=== PATIENT | female | born 1945 | race Caucasian/White ===

== ENCOUNTER 2019-01-22 06:45 | Day surgery (SDC) | payer MEDICARE, OTHER ==
--- NOTE | 2019-01-21 18:42 | NUR ---
CALLED PT, LEFT VOICEMAIL MESSAGE TO CALL BACK TO [phone] IF ABLE BEFORE 8PM
[~2019-01-22] VITALS: Ht 162.6 cm; Wt 103.0 kg
[2019-01-22] VITALS (11 sets, daily range): BP systolic 157–201; BP diastolic 64–82; PULSE 60–76; TEMP 98.4
[~2019-01-22 06:45] MED LIST: ADIPEX-P37.5 MG PO; APPEAREX2.5 MG PO; BENADRYL50 MG PO; ESTRACE 1MG1 MG/TAB PO; LIPITOR20 MG PO; MOBIC15 MG PO; PRILOSEC 20MG20 MG PO; RT ADVAIR HFA 1112 G IH; TEGRETOL 2200 MG/TA1 PO; VITAMIN D 50,1.25 MG PO
[2019-01-22 07:47] LABS: HEMOGLOBIN 11.6 g/dl (12.5-16.0); MEAN CELL VOLUME 90 fl (80.0-100.0); MEAN CORPUSCULAR HEMOGLOBIN 30 pg (27.0-31.0); MEAN CORPUSCULAR HGB CONC 33 g/dl (33.0-37.0); MEAN PLATELET VOLUME 9.4 fl (7.4-10.4); PLATELET COUNT 199 K/mm3 (130-400); RED BLOOD COUNT 3.86 M/mm3 (4.10-5.30); REDCELL DISTRIBUTION WIDTH-CV 12.6 % (11.5-14.5)
[2019-01-22 07:49] LABS: HEMATOCRIT 34.8 % (37.0-47.0)
[2019-01-22 07:51] LABS: PROTHROMBIN TIME 11.5 SECONDS (9.7-12.8)
[2019-01-22 07:52] LABS: CALCIUM 8.4 mg/dL (8.4-10.2); CREATININE, serum 0.54 (0.52-1.25)
[2019-01-22] MEDS ORDERED: ZOLOFT 50MG50 MG PO (08:12)
[2019-01-22] MEDS ORDERED: NEURONTIN300 MG/CAP PO (08:13)
[2019-01-22] MEDS ORDERED: COZAAR100 MG PO (08:15)
[2019-01-22] MEDS ORDERED: DEXILANT60 MG PO (08:18)
[2019-01-22] MEDS ORDERED: ZANTAC 150MG T150 MG PO (08:19)
[2019-01-22] MEDS ORDERED: 00186-0370-20 IH (08:20)
[2019-01-22] MEDS ORDERED: PROAIR HFA0.09 MG/AC IH (08:21)
[2019-01-22] MEDS ORDERED: SPIRIVA RESPIMAT4 GM IH (08:22)
[2019-01-22] MEDS ORDERED: NASAREL0.025 MG/1 NAS (08:23)
[2019-01-22] MEDS ORDERED: ZYRTEC 10MG10 MG PO (08:23)
[2019-01-22] MEDS ORDERED: NORVASC 5MG5 MG/TAB PO (08:24)
[2019-01-22] MEDS ORDERED: SINGULAIR 110 MG/TAB PO (08:24)
[2019-01-22] MEDS ORDERED: MYRBETR25MG PO (08:24)
[2019-01-22] MEDS ORDERED: ASPIRIN E.C. 8181 MG PO (08:25)
[2019-01-22] MEDS ORDERED: NITROSTAT0.4 MG/TAB SL (08:25)
[2019-01-22] MEDS ORDERED: TYLENOL 500MG500 MG PO (08:26)
[2019-01-22] MEDS ORDERED: IMODIUM 2MG CAPS2 MG PO (08:26)
--- NOTE | 2019-01-22 09:09 | NUR ---
SEE MERGE DOCUMENTATION FOR MEDICATION ADMINISTRATION TIMES AND INTRA/POST PROCEDURE SEDATION ASSESSMENTS. PT C/O INCREASED SOA, DIZZINESS, AND SLIGHT CHEST PRESSURE AFTER AMBULATING TO BATHROOM IN EU. SX RESOLVED AFTER RESTING IN BED FOR A FEW MINUTES. DR SALAZAR NOTIFIED OF THIS. PT CONNECTED TO MONITOR FOR TRANSPORT FROM TO [facility].
--- NOTE | 2019-01-22 10:00 | NUR ---
Pt returned to EU 14 per bed s/p heart cath. Pt resting well, friend Ankita at bedside.
--- NOTE | 2019-01-22 10:07 | NUR ---
Pt transferred to 14 from finishing lab technician at this time. VS monitors connected. Pt alert and oriented; conversing with staff. Bedside handoff to TONY Pham. Right radial access site observed. TR band in place with 14 mmHg pressure. No bleeding/brusing noted. SpO2 pleth wave appropriate from right hand fingers. Cap refill <3 sec. Pt denies pain or sensation changes to right wrist or fingers. Education provided regarding wrist restrictions and s/sx to report. All pt questions answered at this time.
--- NOTE | 2019-01-22 13:00 | NUR ---
R radial band removed, site remains soft, C/D/I. Site covered with bandaid and gauze and wrapped with coban. Pt ayde well. Pt has ambulated, voided and ayde PO intake s n/v. PIV removed with catheter intact.
--- NOTE | 2019-01-22 13:25 | NUR ---
Pt discharged per w/c by nurse with friend Ankita.
== END 2019-01-22 14:59 | disposition home or self-care (01) ==
LOC: COL.CAR 06:45
PROVIDERS: Internal Medicine Cardiovascular Disease
DX: I34.8 Other nonrheumatic mitral valve disorders (principal); R94.39 Abnormal result of other cardiovascular function study; J44.9 Chronic obstructive pulmonary disease, unspecified; I10 Essential (primary) hypertension; G47.33 Obstructive sleep apnea (adult) (pediatric); Z88.1 Allergy status to other antibiotic agents; Z88.2 Allergy status to sulfonamides; Z88.8 Allergy status to other drugs, medicaments and biological substances; Z79.52 Long term (current) use of systemic steroids; Z79.01 Long term (current) use of anticoagulants; Z82.49 Family history of ischemic heart disease and other diseases of the circulatory system
CPT/HCPCS: J1644; J2250; J3010

== ENCOUNTER 2020-06-04 07:25 | Day surgery (SDC) | payer MEDICARE, OTHER ==
[~2020-06-04] VITALS: Ht 162.6 cm; Wt 103.0 kg
[2020-06-04] VITALS (16 sets, daily range): BP systolic 135–183; BP diastolic 61–87; PULSE 59–67; TEMP 97
[~2020-06-04 07:25] MED LIST changes: +00186-0370-20 IH; +ASPIRIN E.C. 8181 MG PO; +COZAAR100 MG PO; +DEXILANT60 MG PO; +IMODIUM 2MG CAPS2 MG PO; +MYRBETR25MG PO; +NASAREL0.025 MG/1 NAS; +NEURONTIN300 MG/CAP PO; +NITROSTAT0.4 MG/TAB SL; +NORVASC 5MG5 MG/TAB PO; +PROAIR HFA0.09 MG/AC IH; +SINGULAIR 110 MG/TAB PO; +SPIRIVA RESPIMAT4 GM IH; +TYLENOL 500MG500 MG PO; +ZANTAC 150MG T150 MG PO; +ZOLOFT 50MG50 MG PO; +ZYRTEC 10MG10 MG PO
[2020-06-04 08:38] LABS: HEMOGLOBIN 11.6 g/dl (12.5-16.0); MEAN CELL VOLUME 90 fl (80.0-100.0); MEAN CORPUSCULAR HEMOGLOBIN 30 pg (27.0-31.0); MEAN CORPUSCULAR HGB CONC 33 g/dl (33.0-37.0); MEAN PLATELET VOLUME 9.2 fl (7.4-10.4); PLATELET COUNT 216 K/mm3 (130-400); REDCELL DISTRIBUTION WIDTH-CV 13.1 % (11.5-14.5)
[2020-06-04 08:39] LABS: HEMATOCRIT 35.1 % (37.0-47.0)
[2020-06-04 08:42] LABS: CALCIUM 8.6 mg/dL (8.4-10.2); CREATININE, serum 0.55 (0.52-1.25); INR 1.1 (0.8-3.0); POTASSIUM 3.2 mmol/L (3.4-5.0); PROTHROMBIN TIME 12.5 SECONDS (9.7-12.8)
[2020-06-04 08:44] LABS: PARTIAL THROMBOPLASTIN TIME 33.6 SECONDS (26.0-37.0)
[2020-06-04] MEDS ORDERED: VITAMIND3 5000 PO (08:50)
--- NOTE | 2020-06-04 10:20 | NUR ---
SEE MERGE DOCUMENTATION FOR MEDICATION ADMINISTRATION AND INTRA/POST PROCEDURE SEDATION ASSESSMENTS.
[2020-06-04] MEDS ORDERED: NORVASC 5MG5 MG/TAB PO (11:20)
--- NOTE | 2020-06-04 15:40 | NUR ---
Air was removed from TR band in 2-4 ml increments without bleeing or other issue. Rt radial puncture site dressed with folded 2x2 gauze and bandaid, wrapped with coban. Cap refill to fingers of rt hand remains less than 2 seconds.
--- NOTE | 2020-06-04 17:10 | NUR ---
Dressing to rt groin changed using sterile technique. Folded 4x4 covered with tegaderm dressing applied. Site remains clean, dry and intact, and soft to palpation. Radial puncture site remains soft to palpation, with gauze & bandaid dressing still clean, dry and intact. Pt is able to ambulate to toilet in room with steady gait following 5 hr bedrest period. She has tolerated PO without issue. IV DC'd with catheter intact, bleeding controlled at site. She expressed understanding of DC instructions. She is assisted out with personal belongings to friend's car.
== END 2020-06-04 17:10 | disposition home or self-care (01) ==
LOC: COL.CAR 07:25
PROVIDERS: Internal Medicine Cardiovascular Disease
DX: I25.10 Atherosclerotic heart disease of native coronary artery without angina pectoris (principal); R94.39 Abnormal result of other cardiovascular function study; Z88.1 Allergy status to other antibiotic agents; Z88.2 Allergy status to sulfonamides; Z88.8 Allergy status to other drugs, medicaments and biological substances
CPT/HCPCS: J1644; J2250; J3010; Q9967

== ENCOUNTER → 2021-03-05 | Outpatient (CLI) | payer MEDICARE ==
[~2021-03-05] MED LIST changes: +VITAMIND3 5000 PO
== END ==
LOC: COL.CARD 08:49
DX: R56.9 Unspecified convulsions (principal)

== ENCOUNTER → 2023-12-14 | Outpatient (CLI) | payer MEDICARE, OTHER | LOC: MHCPAIN 10:27 | DX: M54.2 Cervicalgia (principal); R42 Dizziness and giddiness; R22.1 Localized swelling, mass and lump, neck; M79.18 Myalgia, other site | CPT/HCPCS: G0463 ==

== ENCOUNTER → 2023-12-14 | Outpatient (CLI) | payer MEDICARE, OTHER | LOC: COL.RAD 12:01 | DX: M47.812 Spondylosis without myelopathy or radiculopathy, cervical region (principal) ==

== ENCOUNTER → 2024-03-19 | Outpatient (CLI) | payer MEDICARE, OTHER | LOC: MHCPAIN 12:21 | DX: M54.2 Cervicalgia (principal); R42 Dizziness and giddiness; M47.812 Spondylosis without myelopathy or radiculopathy, cervical region; R22.1 Localized swelling, mass and lump, neck | CPT/HCPCS: G0463 ==